=== PATIENT | male | born 2005 | race Caucasian/White ===

== ENCOUNTER 2024-06-04 16:43 | Emergency (ER) | payer MEDICAID ==
[~2024-06-04] VITALS: Ht 167.6 cm; Wt 82.0 kg
[2024-06-04 16:49] VITALS: BP 132/71; TEMP 98.6; O2SAT 99
[2024-06-04 16:51] VITALS: PULSE 85; RESP 18; O2SAT 100
[2024-06-04] MEDS ORDERED: FLUT9.9S BOTHNSTRLS (17:01)
[2024-06-04] MEDS ORDERED: CETI1TAB MT (17:01)
[2024-06-04] MEDS ORDERED: AMOX1TAB16 MT (17:01)
== END 2024-06-04 17:36 | disposition home or self-care (01) ==
LOC: ER 16:43
DX: H66.92 Otitis media, unspecified, left ear (principal); J06.9 Acute upper respiratory infection, unspecified
CPT/HCPCS: 99283

== ENCOUNTER 2025-01-07 10:11 | Emergency (ER) | payer SELFPAY ==
[~2025-01-07] VITALS: Ht 170.2 cm; Wt 82.0 kg
[~2025-01-07 10:11] MED LIST: AMOX1TAB16 MT; CETI1TAB MT; FLUT9.9S BOTHNSTRLS
[2025-01-07 10:16] VITALS: O2SAT 97
[2025-01-07 10:24] VITALS: BP 134/88; PULSE 83; RESP 18; TEMP 36.9; O2SAT 98
[2025-01-07] MEDS ORDERED: CLIN-194 MT (11:04)
[2025-01-07] MEDS ORDERED: MUPI22OI2 TP (11:04)
== END 2025-01-07 11:25 | disposition home or self-care (01) ==
LOC: ER 10:11
DX: I88.9 Nonspecific lymphadenitis, unspecified (principal); B99.8 Other infectious disease; Z79.899 Other long term (current) drug therapy
CPT/HCPCS: 99283